=== PATIENT | female | born 1995 | race Caucasian/White ===

== ENCOUNTER 2022-01-20 09:07 | Emergency (ER) | payer SELFPAY ==
[2022-01-20] MEDS ORDERED: Ondansetron 4 MG Tab.DIS PO PRN (09:40)
== END 2022-01-20 10:59 | disposition home or self-care (01) ==
LOC: LB.ED 09:07
DX: N94.6 Dysmenorrhea, unspecified (principal)
CPT/HCPCS: 99283; Q0162